=== PATIENT | female | born 1975 | race Caucasian/White ===

== ENCOUNTER 2018-07-07 09:42 | Emergency (ER) | payer OTHER ==
[~2018-07-07] VITALS: Ht 162.6 cm; Wt 72.6 kg
[2018-07-07] MEDS ORDERED: IV NORMAL SALINE 1,000ML 1,000 ML IV SCH (09:57)
[2018-07-07] MEDS ORDERED: IOHEXOL 240 MG/ML 50ML VIAL. ONE (10:14)
[2018-07-07 10:27] LABS: BASO # 0.1 x10^3/uL (0.0-0.2); BASO % 1 % (0-3); EOS # 0.1 x10^3/uL (0.0-0.7); EOS % 2 % (0-3); HEMATOCRIT 39.6 % (36.0-47.0); HEMOGLOBIN 13.7 g/dL (12.0-15.5); LYMPH % 26 % (24-48); MEAN CORPUSCULAR HEMOGLOBIN 30 pg (25-35); MEAN CORPUSCULAR HGB CONC 35 g/dL (31-37); MEAN CORPUSCULAR VOLUME 85 fL (79-100); MONO # 0.7 x10^3/uL (0.0-1.1); MONO % 9 % (0-9); NEUT # 4.6 x10^3uL (1.8-7.7); NEUT % 62 % (31-73); PLATELET COUNT 400 x10^3/uL (140-400); RED BLOOD COUNT 4.63 x10^6/uL (3.50-5.40); RED CELL DISTRIBUTION WIDTH 12.6 % (11.5-14.5); WHITE BLOOD COUNT 7.5 x10^3/uL (4.0-11.0)
[2018-07-07] MEDS ORDERED: KETOROLAC 30 MG/ML VIAL. IV ONE (10:30)
[2018-07-07] MEDS ORDERED: IOHEXOL 300 MG/ML 75 ML VIAL. IV ONE (10:30)
[2018-07-07] MEDS ORDERED: ONDANSETRON PF 4 MG/2 ML VIAL. IV ONE (10:30)
[2018-07-07 10:41] LABS: BACTERIA,URINE FEW /HPF (0-FEW); BILIRUBIN,URINE NEG (NEG); CLARITY,URINE CLEAR; COLOR,URINE YELLOW; GLUCOSE,URINE NEG (NEG); NITRITE,URINE NEG (NEG); RBC,URINE 0 /HPF (0-2); SQUAMOUS EPITHELIAL CELL,UR OCC /LPF; UROBILINOGEN,URINE 0.2 mg/dL (0.2 mg/dL); WBC,URINE RARE /HPF (0-4)
[2018-07-07 10:42] LABS: ALBUMIN/GLOBULIN RATIO 1.1 (1.0-1.7); CALCIUM 9.1 mg/dL (8.5-10.1); CREATININE 0.8 mg/dL (0.6-1.0); POTASSIUM 4.2 mmol/L (3.5-5.1); TOTAL BILIRUBIN 0.2 mg/dL (0.2-1.0); TOTAL PROTEIN 7.5 g/dL (6.4-8.2)
--- NOTE | 2018-07-07 11:27 | RAD ---
CT ABD PELV W/ORAL IV CONTRAST dated 07/07/2018 11:07 AM Indication: Pain, nauseaEPIGASTRIC PAIN WITH NAUSEA ONSET LAST NIGHT. ORAL AND 75MLS OMNI 300 IV CONTRAST. Comparison: No comparison is available. Technique: Contiguous axial imaging of the abdomen and pelvis performed with the administration of oral contrast and 75 cc Omnipaque 300. One or more of the following individualized dose reduction techniques were utilized for this examination: 1. Automated exposure control 2. Adjustment of the mA and/or kV according to patient size 3. Use of iterative reconstruction technique Findings: Limited images of lung bases are clear. Heart size within normal limits. No pleural or pericardial effusion. Liver, spleen, pancreas, adrenal glands, gallbladder unremarkable. There is a 2 mm calcific stone at the midpole right kidney. 2 mm calcific stone at the lower pole right kidney. There are also a couple of small calcific stones at the upper and lower pole left kidney. No ureteral stone or hydronephrosis. Partially opacified GI tract normal in caliber and contour. No focal bowel wall thickening. No inflammatory stranding in the mesentery. The appendix is not identified and likely surgically absent. No free fluid or lymphadenopathy. Abdominal aorta is normal in caliber. Images the pelvis show nondistended urinary bladder. Uterus is retroverted and there is a small nodular focus in the myometrium on the right, consistent with small fibroid. There is also some cystic changes of the right ovary measuring up to 1.2 cm. No free pelvic fluid or pelvic lymphadenopathy. Bone windows show no acute findings. IMPRESSION: 1. No acute abnormality of abdomen or pelvis. Status post appendectomy. 2. Bilateral nephrolithiasis, nonobstructive. 3. Fibroid uterus. 4. Small right ovarian cyst. Electronically signed by: Javi Vasquez MD (07/07/2018 11:24 AM) [facility]
--- NOTE | 2018-07-07 11:40 | PHYS DOC ---
Past History Past Medical History: Anxiety, Depression Past Surgical History: Appendectomy, Tubal ligation Alcohol Use: None Drug Use: None Adult General Chief Complaint Chief Complaint: ABDOMINAL PAIN HPI HPI Patient is a 43 year old female who presents with complaining of left upper quadrant pain. Patient states she didn't feel good for the last 2 weeks and has generalized weakness and seen by primary care physician twice and in her last visit had blood test and UA that shows UTI and started to take medication 4 days ago. Patient complaining of left upper quadrant pain since this morning and bloating abdomen with increasing the size of her abdomen and nausea that improved with taking left over of nausea medication. Patient denies fever and chills, vaginal bleeding or discharge, diarrhea and constipation, urinary frequency or dysuria. Review of Systems Review of Systems Constitutional: Denies fever or chills [] Eyes: Denies change in visual acuity, redness, or eye pain [] HENT: Denies nasal congestion or sore throat [] Respiratory: Denies cough or shortness of breath [] Cardiovascular: No additional information not addressed in HPI [] GI: Reports abdominal pain, nausea, denies vomiting, bloody stools or diarrhea [ ] : Denies dysuria or hematuria [] Musculoskeletal: Denies back pain or joint pain [] Integument: Denies rash or skin lesions [] Neurologic: Denies headache, focal weakness or sensory changes [] Endocrine: Denies polyuria or polydipsia [] All other systems were reviewed and found to be within normal limits, except as documented in this note. Current Medications Current Medications Current Medications Medications (Trade) Dose Ordered Sig/Surjit Start Time Stop Time Status Last Admin Dose Admin Iohexol (Omnipaque 240 Mg/ml) 50 ml STK-MED ONCE 07/07/18 10:14 07/07/18 10:15 DC Iohexol (Omnipaque 300 Mg/ml) 75 ml 1X ONCE 07/07/18 10:30 07/07/18 10:31 DC 07/07/18 11:15 75 ML Ketorolac Tromethamine (Toradol 30mg Vial) 30 mg 1X ONCE 07/07/18 10:30 07/07/18 10:31 DC 07/07/18 10:29 30 MG Ondansetron HCl (Zofran) 4 mg 1X ONCE 07/07/18 10:30 07/07/18 10:31 DC 07/07/18 10:28 4 MG Sodium Chloride 1,000 ml @ 1,000 mls/hr Q1H 07/07/18 09:57 07/07/18 10:56 DC 07/07/18 10:26 1,000 MLS/HR Allergies Allergies Allergies Coded Allergies Type Severity Reaction Last Updated Verified No Known Drug Allergies 07/07/18 No Physical Exam Physical Exam Constitutional: Well developed, well nourished, mild distress, non-toxic appearance. [] HENT: Normocephalic, atraumatic, bilateral external ears normal, oropharynx moist, no oral exudates, nose normal. [] Eyes: PERRLA, EOMI, conjunctiva normal, no discharge. [] Neck: Normal range of motion, no tenderness, supple, no stridor. [] Cardiovascular:Heart rate regular rhythm, no murmur [] Lungs & Thorax: Bilateral breath sounds clear to auscultation [] Abdomen: Bowel sounds normal, soft, mildly distended with gas, no tenderness, no masses, no pulsatile masses. [] Skin: Warm, dry, no erythema, no rash. [] Back: No tenderness, no CVA tenderness. [] Extremities: No tenderness, no cyanosis, no clubbing, ROM intact, no edema. [] Neurologic: Alert and oriented X 3, normal motor function, normal sensory function, no focal deficits noted. [] Psychologic: Affect normal, judgement normal, mood normal. [] Current Patient Data Vital Signs Vital Signs Date Time Temp Pulse Resp B/P (MAP) Pulse Ox O2 Delivery O2 Flow Rate FiO2 07/07/18 10:24 78 16 98/49 (65) 100 Room Air 07/07/18 09:50 97.7 Lab Results Laboratory Tests Test 07/07/18 10:17 07/07/18 10:20 White Blood Count 7.5 x10^3/uL (4.0-11.0) Red Blood Count 4.63 x10^6/uL (3.50-5.40) Hemoglobin 13.7 g/dL (12.0-15.5) Hematocrit 39.6 % (36.0-47.0) Mean Corpuscular Volume 85 fL (79-100) Mean Corpuscular Hemoglobin 30 pg (25-35) Mean Corpuscular Hemoglobin Concent 35 g/dL (31-37) Red Cell Distribution Width 12.6 % (11.5-14.5) Platelet Count 400 x10^3/uL (140-400) Neutrophils (%) (Auto) 62 % (31-73) Lymphocytes (%) (Auto) 26 % (24-48) Monocytes (%) (Auto) 9 % (0-9) Eosinophils (%) (Auto) 2 % (0-3) Basophils (%) (Auto) 1 % (0-3) Neutrophils # (Auto) 4.6 x10^3uL (1.8-7.7) Lymphocytes # (Auto) 2.0 x10^3/uL (1.0-4.8) Monocytes # (Auto) 0.7 x10^3/uL (0.0-1.1) Eosinophils # (Auto) 0.1 x10^3/uL (0.0-0.7) Basophils # (Auto) 0.1 x10^3/uL (0.0-0.2) Sodium Level 137 mmol/L (136-145) Potassium Level 4.2 mmol/L (3.5-5.1) Chloride Level 102 mmol/L (98-107) Carbon Dioxide Level 26 mmol/L (21-32) Anion Gap 9 (6-14) Blood Urea Nitrogen 10 mg/dL (7-20) Creatinine 0.8 mg/dL (0.6-1.0) Estimated GFR (Cockcroft-Gault) 79.0 BUN/Creatinine Ratio 13 (6-20) Glucose Level 94 mg/dL (70-99) Calcium Level 9.1 mg/dL (8.5-10.1) Total Bilirubin 0.2 mg/dL (0.2-1.0) Aspartate Amino Transferase (AST) 22 U/L (15-37) Alanine Aminotransferase (ALT) 49 U/L (14-59) Alkaline Phosphatase 72 U/L (46-116) Troponin I Quantitative < 0.017 ng/mL (0-0.055) Total Protein 7.5 g/dL (6.4-8.2) Albumin 4.0 g/dL (3.4-5.0) Albumin/Globulin Ratio 1.1 (1.0-1.7) Lipase 114 U/L (73-393) Urine Collection Type Unknown Urine Color Yellow Urine Clarity Clear Urine pH 7.5 Urine Specific [place] 1.010 Urine Protein Neg (NEG-TRACE) Urine Glucose (UA) Neg mg/dL (NEG) Urine Ketones (Stick) Neg mg/dL (NEG) Urine Blood Neg (NEG) Urine Nitrite Neg (NEG) Urine Bilirubin Neg (NEG) Urine Urobilinogen Dipstick 0.2 mg/dL (0.2 mg/dL) Urine Leukocyte Esterase Neg (NEG) Urine RBC 0 /HPF (0-2) Urine WBC Rare /HPF (0-4) Urine Squamous Epithelial Cells Occ /LPF Urine Bacteria Few /HPF (0-FEW) Urine Mucus Slight /LPF EKG EKG [] Radiology/Procedures Radiology/Procedures [address] [address] IMAGING REPORT Signed PATIENT: JOSE SERNA ACCOUNT: [id number] : 1975 LOCATION: ER AGE: 43 SEX: F EXAM STATUS: REG ER ORD. PHYSICIAN: DANISHA ALMONTE MD REASON: abdominal pain PROCEDURE: CT ABD PELV W/ORAL&IV CONTRAST CT ABD PELV W/ORAL IV CONTRAST dated 07/07/2018 11:07 AM Indication: Pain, nauseaEPIGASTRIC PAIN WITH NAUSEA ONSET LAST NIGHT. ORAL AND 75MLS OMNI 300 IV CONTRAST. Comparison: No comparison is available. Technique: Contiguous axial imaging of the abdomen and pelvis performed with the administration of oral contrast and 75 cc Omnipaque 300. One or more of the following individualized dose reduction techniques were utilized for this examination: 1. Automated exposure control 2. Adjustment of the mA and/or kV according to patient size 3. Use of iterative reconstruction technique Findings: Limited images of lung bases are clear. Heart size within normal limits. No pleural or pericardial effusion. Liver, spleen, pancreas, adrenal glands, gallbladder unremarkable. There is a 2 mm calcific stone at the midpole right kidney. 2 mm calcific stone at the lower pole right kidney. There are also a couple of small calcific stones at the upper and lower pole left kidney. No ureteral stone or hydronephrosis. Partially opacified GI tract normal in caliber and contour. No focal bowel wall thickening. No inflammatory stranding in the mesentery. The appendix is not identified and likely surgically absent. No free fluid or lymphadenopathy. Abdominal aorta is normal in caliber. Images the pelvis show nondistended urinary bladder. Uterus is retroverted and there is a small nodular focus in the myometrium on the right, consistent with small fibroid. There is also some cystic changes of the right ovary measuring up to 1.2 cm. No free pelvic fluid or pelvic lymphadenopathy. Bone windows show no acute findings. IMPRESSION: 1. No acute abnormality of abdomen or pelvis. Status post appendectomy. 2. Bilateral nephrolithiasis, nonobstructive. 3. Fibroid uterus. 4. Small right ovarian cyst. Electronically signed by: Javi Vasquez MD (07/07/2018 11:24 AM) [facility] DICTATED AND SIGNED BY: JAVI VASQUEZ MD DATE: 07/07/18 1120 CC: DANISHA ALMONTE MD; NON,STAFF ~ Course & Med Decision Making Course & Med Decision Making Pertinent Labs and Imaging studies reviewed. (See chart for details) Evaluation of patient in ER showed 43-year-old female patient with complaining of generalized weakness for 3 weeks and taking medication for UTI and having abdominal pain after taking antibiotics. Patient had unremarkable physical exam and labs and CT abdomen and pelvis except for accidental bilateral nephrolithiasis and ovarian cyst. Patient felt better with treatment with IV fluid, Zofran, Toradol. Patient didn't want to have pain medication for home. Patient psychiatric to stop taking antibiotic and increase fluid intake and continue home ibuprofen and nausea medication as needed. Dragon Disclaimer Dragon Disclaimer This electronic medical record was generated, in whole or in part, using a voice recognition dictation system. Departure Departure: Impression: Primary Impression: Medication side effects Additional Impressions: Viral illness Abdominal bloating Nephrolithiasis Disposition: HOME, SELF-CARE (at 1155) Condition: IMPROVED Referrals: NON,STAFF (PCP) Patient Instructions: Drug Reaction, GI Intolerance, Viral Syndrome Additional Instructions: Drink plenty of liquids Follow-up with your primary care physician in 3-5 days Return to ER if not getting better Stop taking antibiotics for urinary tract infection Problem Qualifiers DANISHA ALMONTE MD Jul 07, 2018 11:40
[2018-07-07 12:10] VITALS: BP 116/57
== END 2018-07-07 12:16 | disposition home or self-care (01) ==
LOC: ER 09:42
DX: R14.0 Abdominal distension (gaseous) (principal); B34.9 Viral infection, unspecified; T50.995A Adverse effect of other drugs, medicaments and biological substances, initial encounter; N20.0 Calculus of kidney; N83.201 Unspecified ovarian cyst, right side; D25.9 Leiomyoma of uterus, unspecified; Z90.49 Acquired absence of other specified parts of digestive tract; Z98.51 Tubal ligation status; Y92.89 Other specified places as the place of occurrence of the external cause
CPT/HCPCS: 36415; 74177; 80053; 81001; 83690; 84484; 85025; 96374; 96375; 99285; J1885; J2405; Q9967; 96361; J7030

== ENCOUNTER 2019-01-11 17:00 | Emergency (ER) | payer OTHER ==
[~2019-01-11] VITALS: Ht 162.6 cm; Wt 76.2 kg
[2019-01-11 17:14] VITALS: BP 148/82
[2019-01-11] MEDS ORDERED: IV NORMAL SALINE 1,000ML 1,000 ML IV SCH (17:41)
--- NOTE | 2019-01-11 17:49 | PHYS DOC ---
Past History Past Medical History: Ectopic Past Surgical History: Appendectomy, Other Additional Past Surgical Histo: bilateral tubal removal secondary to ectopic Smoking: Less than 1pk/day Alcohol Use: None Drug Use: None Adult General Chief Complaint Chief Complaint: HEADACHE HPI HPI Patient is a 43-year-old female presents with a headache that has been present for the past month intermittently, starting in the occipital region, much worse over the last 3 days and not getting any significant pain relief with the over -the-counter medicines she has been taking such as ibuprofen and Excedrin. There is some photophobia and phonophobia. Patient also notes some nausea as well as abdominal discomfort and reflux symptoms, feeling like there is a burning in her throat. Some nausea with this as well. Patient says that feels like she is within her abdomen however this is not possible because she had bilateral tubal removal due to ectopic . Darkness and quiet seem to make the symptoms a little bit better.[] Review of Systems Review of Systems Constitutional: Denies fever or chills [] Eyes: Denies change in visual acuity, redness, or eye pain [] HENT: Denies nasal congestion or sore throat [] Respiratory: Denies cough or shortness of breath [] Cardiovascular: No chest pain, palpitations are present, patient feels that she has a fast heartbeat[] GI: See history of present illness[] : Denies dysuria or hematuria [] Musculoskeletal: Denies back pain or joint pain [] Integument: Denies rash or skin lesions [] Neurologic: Denies focal weakness or sensory changes, see history of present illness [] Endocrine: Denies polyuria or polydipsia [] All other systems were reviewed and found to be within normal limits, except as documented in this note. Allergies Allergies Allergies Coded Allergies Type Severity Reaction Last Updated Verified No Known Drug Allergies 01/11/19 No Physical Exam Physical Exam Constitutional: Well developed, well nourished, no acute distress, non-toxic appearance. [] HENT: Normocephalic, atraumatic, bilateral external ears normal, oropharynx moist, no oral exudates, nose normal. [] Eyes: PERRLA, EOMI, conjunctiva normal, no discharge. [] Neck: Normal range of motion, no tenderness, supple, no stridor. No meningismus [] Cardiovascular:Heart rate regular rhythm, no murmur [] Lungs & Thorax: Bilateral breath sounds clear to auscultation [] Abdomen: Bowel sounds normal, soft, diffuse tenderness, no rebound, no guarding, no rigidity, no masses, no pulsatile masses. [] Skin: Warm, dry, no erythema, no rash. [] Back: No tenderness, no CVA tenderness. [] Extremities: No tenderness, no cyanosis, no clubbing, ROM intact, no edema. [] Neurologic: Alert and oriented X 3, normal motor function, normal sensory function, no focal deficits noted. [] Psychologic: Affect normal, judgement normal, mood normal. [] Current Patient Data Vital Signs Vital Signs Date Time Temp Pulse Resp B/P (MAP) Pulse Ox O2 Delivery O2 Flow Rate FiO2 01/11/19 17:14 98.2 89 18 100 Room Air EKG EKG [] Radiology/Procedures Radiology/Procedures [] Course & Med Decision Making Course & Med Decision Making Pertinent Labs and Imaging studies reviewed. (See chart for details) ED course: Patient arrived, was placed in bed, and tolerated exam well. Laboratory testing and imaging were ordered. Patient care was endorsed to the oncoming physician at 1800 with the results of testing and medical interventions pending.[] Dragon Disclaimer Dragon Disclaimer This electronic medical record was generated, in whole or in part, using a voice recognition dictation system. Departure Departure: Referrals: NON,STAFF (PCP) MARY ANN DING DO Jan 11, 2019 17:49
--- NOTE | 2019-01-11 17:53 | EKG ---
[address] [address] Test Date: 2019-01-11 Test Time: 17:50:17 Pat Name: JOSE SERAN Department: Room: Gender: F Chef German: HARRIS : 1975 Requested By: MARY ANN DING Order Number: [id number] Reading MD: Favian Harrell Measurements Intervals [place] Rate: 81 P: 66 WV: 116 QRS: 71 QRSD: 84 T: 49 QT: 388 QTc: 456 Interpretive Statements SINUS RHYTHM R-S TRANSITION ZONE IN V LEADS DISPLACED TO THE LEFT NO SPECIFIC ECG ABNORMALITIES RI6.01 No previous ECG available for comparison Electronically Signed On 01-17-2019 11:58:02 CDT by Favian Harrell
[2019-01-11] MEDS ORDERED: PROCHLORPERAZINE 10 MG/2 ML VIAL. IV ONE (18:00)
[2019-01-11] MEDS ORDERED: KETOROLAC 30 MG/ML VIAL. IV ONE (18:00)
[2019-01-11 18:19] LABS: BASO % 1 % (0-3); EOS % 1 % (0-3); HEMATOCRIT 40.7 % (36.0-47.0); HEMOGLOBIN 13.8 g/dL (12.0-15.5); LYMPH % 27 % (24-48); MEAN CORPUSCULAR HEMOGLOBIN 30 pg (25-35); MEAN CORPUSCULAR HGB CONC 34 g/dL (31-37); MEAN CORPUSCULAR VOLUME 87 fL (79-100); MONO # 0.5 x10^3/uL (0.0-1.1); MONO % 7 % (0-9); NEUT # 4.9 x10^3uL (1.8-7.7); NEUT % 65 % (31-73); PLATELET COUNT 404 x10^3/uL (140-400); RED BLOOD COUNT 4.66 x10^6/uL (3.50-5.40); RED CELL DISTRIBUTION WIDTH 13.1 % (11.5-14.5); WHITE BLOOD COUNT 7.5 x10^3/uL (4.0-11.0)
--- NOTE | 2019-01-11 18:24 | RAD ---
CT Head W/O Contrast: History: HEADACHE X A FEW DAYS, WORSENING. Comparison: none Axial images were obtained without contrast. The dinh and white matter appears normal and symmetrical for the patients age. There is no mass effect, extraaxial fluid collections or hydrocephalus. There is no gross bleed. There is no focal loss of dinh-white matter distinction to suggest acute ischemia, i.e. stroke. Impression: No acute findings. RS Compliance Statement: One or more of the following individualized dose reduction techniques were utilized for this examination: 1. Automated exposure control 2. Adjustment of the mA and/or kV according to patient size 3. Use of iterative reconstruction technique Electronically signed by: Tavares Doyle III, MD (01/11/2019 6:21 PM) [facility]
[2019-01-11 18:28] LABS: BARBITURATES NEG (NEG); BENZODIAZEPINES NEG (NEG); CANNABINOIDS NEG (NEG); COCAINE NEG (NEG); METHADONE NEG (NEG); OPIATES NEG (NEG); PHENCYCLIDINE NEG (NEG)
[2019-01-11 18:29] LABS: AMPHETAMINE/METHAMPHETAMINE NEG (NEG)
[2019-01-11 18:39] LABS: ALBUMIN 4.3 g/dL (3.4-5.0); ALBUMIN/GLOBULIN RATIO 1.1 (1.0-1.7); CALCIUM 9.4 mg/dL (8.5-10.1); CREATININE 0.8 mg/dL (0.6-1.0); POTASSIUM 4.4 mmol/L (3.5-5.1); TOTAL BILIRUBIN 0.2 mg/dL (0.2-1.0); TOTAL PROTEIN 8.1 g/dL (6.4-8.2)
[2019-01-11] MEDS ORDERED: SUMA100T3 PO (20:15)
[2019-01-11] MEDS ORDERED: ONDA8TAB9 PO (20:15)
== END 2019-01-11 20:35 | disposition home or self-care (01) ==
LOC: ER 17:00
DX: R51 Headache (principal); F17.200 Nicotine dependence, unspecified, uncomplicated
CPT/HCPCS: 36415; 70450; 80053; 80307; 81025; 83690; 84484; 85025; 93005; 96374; 96375; 99285; J0780; J1885; J7030

== ENCOUNTER 2019-02-13 14:52 | Emergency (ER) | payer OTHER ==
[~2019-02-13] VITALS: Ht 162.6 cm; Wt 77.0 kg
[~2019-02-13 14:52] MED LIST: ONDA8TAB9 PO; SUMA100T3 PO
[2019-02-13] MEDS ORDERED: diphenhydrAMINE 50 MG/ML VIAL IVP ONE (15:30)
[2019-02-13] MEDS ORDERED: KETOROLAC 30 MG/ML VIAL. IV ONE (15:30)
[2019-02-13] MEDS ORDERED: IV NORMAL SALINE 1,000ML 1,000 ML IV ONE (15:30)
[2019-02-13] MEDS ORDERED: METOCLOPRAMIDE HCL 10 MG/2 ML VIAL. IV ONE (15:30)
[2019-02-13 15:33] LABS: BASO # 0.1 x10^3/uL (0.0-0.2); BASO % 1 % (0-3); EOS # 0.3 x10^3/uL (0.0-0.7); EOS % 4 % (0-3); HEMATOCRIT 37.4 % (36.0-47.0); HEMOGLOBIN 12.6 g/dL (12.0-15.5); LYMPH # 1.8 x10^3/uL (1.0-4.8); LYMPH % 27 % (24-48); MEAN CORPUSCULAR HEMOGLOBIN 29 pg (25-35); MEAN CORPUSCULAR HGB CONC 34 g/dL (31-37); MEAN CORPUSCULAR VOLUME 87 fL (79-100); MONO # 0.6 x10^3/uL (0.0-1.1); MONO % 9 % (0-9); NEUT # 3.9 x10^3uL (1.8-7.7); NEUT % 59 % (31-73); PLATELET COUNT 406 x10^3/uL (140-400); RED BLOOD COUNT 4.32 x10^6/uL (3.50-5.40); RED CELL DISTRIBUTION WIDTH 13.1 % (11.5-14.5); WHITE BLOOD COUNT 6.7 x10^3/uL (4.0-11.0)
[2019-02-13 15:48] LABS: ALBUMIN 3.6 g/dL (3.4-5.0); ALBUMIN/GLOBULIN RATIO 1.1 (1.0-1.7); CREATININE 0.6 mg/dL (0.6-1.0); GFR 110.2; POTASSIUM 3.9 mmol/L (3.5-5.1); TOTAL BILIRUBIN 0.2 mg/dL (0.2-1.0); TOTAL PROTEIN 6.9 g/dL (6.4-8.2)
--- NOTE | 2019-02-13 15:55 | PHYS DOC ---
Past History Past Medical History: Ectopic Past Surgical History: Appendectomy, Other Additional Past Surgical Histo: bilateral tubal removal secondary to ectopic Smoking: Less than 1pk/day Alcohol Use: None Drug Use: None Adult General Chief Complaint Chief Complaint: HEADACHE HPI HPI 43-year-old female returns emergency room with continued headaches. She was seen in this ER couple weeks ago with headache. She has follow-up with her PCP as directed. Workup thus far is negative. The patient still gets headaches almost e very day. She usually takes Excedrin. She tried to go for 3 days without taking any Excedrin and had headaches each day. She finally took it again yesterday because the headache was more severe and she needed some, treatment. The patient also admits that she has had some neck pain at the same time these headaches she is not sure which one happens first. She further complains of some nausea and excessive burping the last several days. She does not have a history of GERD. She does have some left lower quadrant abdominal tenderness. Patient denies fever or chills at home. She had a skin lesion that was treated with antibiotics and is healing on her left breast. The patient is rarely sick. She has no history of GERD or migraine headaches. All the symptoms are recent for her. Review of Systems Review of Systems Constitutional: Denies fever or chills [] Eyes: Denies change in visual acuity, redness, or eye pain [] HENT: Denies nasal congestion or sore throat [] Respiratory: Denies cough or shortness of breath [] Cardiovascular: No additional information not addressed in HPI [] GI: LLQ abdominal pain, nausea. Denies vomiting, bloody stools or diarrhea [] : Denies dysuria or hematuria [] Musculoskeletal: neck pain and stiffness [] Integument: Denies rash or skin lesions [] Neurologic: Headache. Denies focal weakness or sensory changes [] Endocrine: Denies polyuria or polydipsia [] All other systems were reviewed and found to be within normal limits, except as documented in this note. Current Medications Current Medications Current Medications Medications (Trade) Dose Ordered Sig/Surjit Start Time Stop Time Status Last Admin Dose Admin Diphenhydramine HCl (Benadryl) 25 mg 1X ONCE 02/13/19 15:30 02/13/19 15:31 DC Ketorolac Tromethamine (Toradol 30mg Vial) 30 mg 1X ONCE 02/13/19 15:30 02/13/19 15:31 DC Metoclopramide HCl (Reglan Vial) 10 mg 1X ONCE 02/13/19 15:30 02/13/19 15:31 DC Sodium Chloride 1,000 ml @ 1,000 mls/hr 1X ONCE 02/13/19 15:30 02/13/19 16:29 Allergies Allergies Allergies Coded Allergies Type Severity Reaction Last Updated Verified No Known Drug Allergies 01/11/19 No Physical Exam Physical Exam Constitutional: Well developed, well nourished, no acute distress, non-toxic appearance. [] HENT: Normocephalic, atraumatic, bilateral external ears normal, oropharynx moist, no oral exudates, nose normal. [] Eyes: PERRLA, EOMI, conjunctiva normal, no discharge. [] Neck: Normal range of motion, no tenderness, supple, no stridor. [] Cardiovascular:Heart rate regular rhythm, no murmur [] Lungs & Thorax: Bilateral breath sounds clear to auscultation [] Abdomen: Bowel sounds normal, soft, LLQ tenderness, no masses, no pulsatile masses. [] Skin: Healing skin lesion on the left breast, no current signs of infection.[] Back: No tenderness, no CVA tenderness. [] Extremities: No tenderness, no cyanosis, no clubbing, ROM intact, no edema. [] Neurologic: Alert and oriented X 3, normal motor function, normal sensory function, no focal deficits noted. [] Psychologic: Affect normal, judgement normal, mood concerned. [] Current Patient Data Vital Signs Vital Signs Date Time Temp Pulse Resp B/P (MAP) Pulse Ox O2 Delivery O2 Flow Rate FiO2 02/13/19 15:00 98.2 99 16 99 Room Air Lab Results Laboratory Tests Test 02/13/19 15:22 White Blood Count 6.7 x10^3/uL (4.0-11.0) Red Blood Count 4.32 x10^6/uL (3.50-5.40) Hemoglobin 12.6 g/dL (12.0-15.5) Hematocrit 37.4 % (36.0-47.0) Mean Corpuscular Volume 87 fL (79-100) Mean Corpuscular Hemoglobin 29 pg (25-35) Mean Corpuscular Hemoglobin Concent 34 g/dL (31-37) Red Cell Distribution Width 13.1 % (11.5-14.5) Platelet Count 406 x10^3/uL (140-400) H Neutrophils (%) (Auto) 59 % (31-73) Lymphocytes (%) (Auto) 27 % (24-48) Monocytes (%) (Auto) 9 % (0-9) Eosinophils (%) (Auto) 4 % (0-3) H Basophils (%) (Auto) 1 % (0-3) Neutrophils # (Auto) 3.9 x10^3uL (1.8-7.7) Lymphocytes # (Auto) 1.8 x10^3/uL (1.0-4.8) Monocytes # (Auto) 0.6 x10^3/uL (0.0-1.1) Eosinophils # (Auto) 0.3 x10^3/uL (0.0-0.7) Basophils # (Auto) 0.1 x10^3/uL (0.0-0.2) Sodium Level 142 mmol/L (136-145) Potassium Level 3.9 mmol/L (3.5-5.1) Chloride Level 106 mmol/L (98-107) Carbon Dioxide Level 27 mmol/L (21-32) Anion Gap 9 (6-14) Blood Urea Nitrogen 17 mg/dL (7-20) Creatinine 0.6 mg/dL (0.6-1.0) Estimated GFR (Cockcroft-Gault) 110.2 BUN/Creatinine Ratio 28 (6-20) H Glucose Level 106 mg/dL (70-99) H Calcium Level 9.0 mg/dL (8.5-10.1) Total Bilirubin 0.2 mg/dL (0.2-1.0) Aspartate Amino Transferase (AST) 30 U/L (15-37) Alanine Aminotransferase (ALT) 80 U/L (14-59) H Alkaline Phosphatase 59 U/L (46-116) Total Protein 6.9 g/dL (6.4-8.2) Albumin 3.6 g/dL (3.4-5.0) Albumin/Globulin Ratio 1.1 (1.0-1.7) EKG EKG [] Radiology/Procedures Radiology/Procedures [] Impressions: 3 view study of the cervical spine Clinical indications: Neck pain. Headaches. FINDINGS: No acute fracture or discitis or lytic process or prevertebral soft tissue swelling is evident. There is straightening of the normal cervical lordosis which may be secondary to muscle spasm. There is mild retrolisthesis of C5 on C6. There is mild degenerative disc space narrowing and endplate spurring at this level. IMPRESSION: Degenerative cervical spondylosis at C5-6. No acute fracture. Muscle spasm. Electronically signed by: Jose Weems MD (02/13/2019 5:02 PM) [id number] DICTATED AND SIGNED BY: JOSE WEEMS MD DATE: 02/13/19 1702 CC: GABBY AMAYA DO; PCP,NO ~ CT ABD PELV W/ IV CONTRST ONLY Indication: Left lower quadrant pain. Nausea for one month. Exposure: One or more of the following individualized dose reduction techniques were utilized for this examination: 1. Automated exposure control 2. Adjustment of the mA and/or kV according to patient size 3. Use of iterative reconstruction technique. Technique: Intravenous contrast was given. No oral contrast per request. Comparison: 07/07/2018. FINDINGS: Mild dependent density lung bases likely atelectasis. There are couple of tiny subcentimeter hypodense liver lesions, unchanged since prior study. Spleen is not enlarged. Pancreas appears unremarkable. No evidence of adrenal mass. Upper and lower pole renal calculi are again identified. Right lower pole calculus measures slightly larger, now 2-3 mm. There is an area of hypodensity in the lower pole the right kidney laterally, with overlying parenchymal volume loss, unchanged since the prior study may represent an area of scarring or chronic caliectasis, versus renal lesion. This does not demonstrate fluid density characteristics of a cyst. No calcified gallstone. Aorta is nonaneurysmal. No significant lymph node enlargement. No significant small bowel distention. No evidence of acute colitis. There are surgical clips in the right lower quadrant, may indicate a prior appendectomy. The appendix is not visualized. No evidence of ascites. No significant pneumoperitoneum. Urinary bladder appears unremarkable. No evidence of a pelvic mass. No evidence of destructive bone lesion. Vertebral body height is maintained. There is minimal retrolisthesis of L5 on S1. Stable since prior study. Mild lower lumbar spondylosis. IMPRESSION: 1. Bilateral nonobstructive renal calculi. 2. Small low-density lesion at the lower pole the right kidney could represent an area of scarring or chronic caliectasis. Noncystic renal mass is possible but note this has not changed since the prior study. Ultrasound could be of benefit for further evaluation. Electronically signed by: Javi Mojica MD (02/13/2019 5:00 PM) [id number] DICTATED AND SIGNED BY: JAVI MOJICA MD DATE: 02/13/19 1700 CC: GABBY AMAYA DO; PCP,NO ~ Course & Med Decision Making Course & Med Decision Making Pertinent Labs and Imaging studies reviewed. (See chart for details) At her previous visit, the patient had a head CT that was negative. The patient's cervical x-rays social degenerative changes C5-C6, but no other significant findings. Her CT of the abdomen does not show any acute findings. S official read for more details. I don't really have a good reason for the patient's headache. There is a possibility she has further cervical spine issues that can be seen on MRI leading to her headaches. I will advise that she follow up with her PCP about this is also possible rebound headaches from taking Excedrin 3 times a day. She is stable for discharge at this time. [] Dragon Disclaimer Dragon Disclaimer This electronic medical record was generated, in whole or in part, using a voice recognition dictation system. Departure Departure: Impression: Primary Impression: Headache Additional Impression: LLQ abdominal pain Disposition: HOME, SELF-CARE Condition: STABLE Referrals: PCP,MIRIAM (PCP) Patient Instructions: Headache and Allergies Problem Qualifiers Primary Impression: Headache Headache type: unspecified Headache chronicity pattern: acute headache Intractability: intractable Qualified Codes: R51 - Headache GABBY AMAYA DO February 13, 2019 15:55
[2019-02-13] MEDS ORDERED: IOHEXOL 300 MG/ML 75 ML VIAL. IV ONE (16:15)
[2019-02-13 17:00] LABS: BACTERIA,URINE 0 /HPF (0-FEW); BILIRUBIN,URINE NEG (NEG); CLARITY,URINE CLOUDY; COLOR,URINE YELLOW; GLUCOSE,URINE NEG (NEG); NITRITE,URINE NEG (NEG); RBC,URINE OCC /HPF (0-2); SQUAMOUS EPITHELIAL CELL,UR OCC /LPF; UROBILINOGEN,URINE 0.2 mg/dL (0.2 mg/dL); WBC,URINE 0 /HPF (0-4)
--- NOTE | 2019-02-13 17:03 | RAD ---
CT ABD PELV W/ IV CONTRST ONLY Indication: Left lower quadrant pain. Nausea for one month. Exposure: One or more of the following individualized dose reduction techniques were utilized for this examination: 1. Automated exposure control 2. Adjustment of the mA and/or kV according to patient size 3. Use of iterative reconstruction technique. Technique: Intravenous contrast was given. No oral contrast per request. Comparison: 07/07/2018. FINDINGS: Mild dependent density lung bases likely atelectasis. There are couple of tiny subcentimeter hypodense liver lesions, unchanged since prior study. Spleen is not enlarged. Pancreas appears unremarkable. No evidence of adrenal mass. Upper and lower pole renal calculi are again identified. Right lower pole calculus measures slightly larger, now 2-3 mm. There is an area of hypodensity in the lower pole the right kidney laterally, with overlying parenchymal volume loss, unchanged since the prior study may represent an area of scarring or chronic caliectasis, versus renal lesion. This does not demonstrate fluid density characteristics of a cyst. No calcified gallstone. Aorta is nonaneurysmal. No significant lymph node enlargement. No significant small bowel distention. No evidence of acute colitis. There are surgical clips in the right lower quadrant, may indicate a prior appendectomy. The appendix is not visualized. No evidence of ascites. No significant pneumoperitoneum. Urinary bladder appears unremarkable. No evidence of a pelvic mass. No evidence of destructive bone lesion. Vertebral body height is maintained. There is minimal retrolisthesis of L5 on S1. Stable since prior study. Mild lower lumbar spondylosis. IMPRESSION: 1. Bilateral nonobstructive renal calculi. 2. Small low-density lesion at the lower pole the right kidney could represent an area of scarring or chronic caliectasis. Noncystic renal mass is possible but note this has not changed since the prior study. Ultrasound could be of benefit for further evaluation. Electronically signed by: Javi Mojica MD (02/13/2019 5:00 PM) [facility]
[2019-02-13 17:04] VITALS: BP 129/72
--- NOTE | 2019-02-13 17:05 | RAD ---
3 view study of the cervical spine Clinical indications: Neck pain. Headaches. FINDINGS: No acute fracture or discitis or lytic process or prevertebral soft tissue swelling is evident. There is straightening of the normal cervical lordosis which may be secondary to muscle spasm. There is mild retrolisthesis of C5 on C6. There is mild degenerative disc space narrowing and endplate spurring at this level. IMPRESSION: Degenerative cervical spondylosis at C5-6. No acute fracture. Muscle spasm. Electronically signed by: Alfa Weems MD (02/13/2019 5:02 PM) [id number]
== END 2019-02-13 17:31 | disposition home or self-care (01) ==
LOC: ER 14:52
DX: R51 Headache (principal); M54.2 Cervicalgia; R10.32 Left lower quadrant pain; F17.200 Nicotine dependence, unspecified, uncomplicated; N20.0 Calculus of kidney; M47.896 Other spondylosis, lumbar region; Z90.89 Acquired absence of other organs
CPT/HCPCS: 36415; 72040; 74177; 80053; 81001; 85025; 96374; 96375; 99285; J1200; J1885; J2765; Q9967; J7030